=== PATIENT | male | born 1980 | race Two or more races ===

== ENCOUNTER → 2018-06-10 | Outpatient (CLI) | payer OTHER ==
[~2018-06-10] MED LIST: GEMF600T PO; OMEP-110 PO; OXYC1TAB7 PO; SIMV10TA3 PO; [UNRECOGNIZED DRUG - OTHER]
[2018-06-10 07:38] LABS: ALANINE AMINOTRANSFERASE 34 U/L (12-78); ALBUMIN 3.5 g/dL (3.4-5.0); ANION GAP 7 mmol/L (5-15); CALCIUM 8.6 mg/dL (8.5-10.1); CHLORIDE 109 mmol/L (98-107); CHOLESTEROL, TOTAL 176 mg/dL (140-239); CREATININE 0.77 mg/dL (0.7-1.3)
[2018-06-10 07:40] LABS: ALKALINE PHOSPHATASE 51 U/L (45-117); BILIRUBIN,TOTAL 0.2 mg/dL (0.2-1.0); CHOL/HDL RATIO 7.3; HDL CHOL % 14 % (26-37); HDL CHOLESTEROL (DIRECT) 24 mg/dL (40-60); LDL CHOLESTEROL,CALCULATED 95 mg/dL (54-169); TOTAL PROTEIN 7.3 g/dL (6.4-8.2); TRIGLYCERIDES 286 mg/dL (50-200); VLDL CHOLESTEROL 57 mg/dL (0-25)
== END | disposition home or self-care (01) ==
LOC: LAB 07:04
PROVIDERS: ATTEND Family Medicine
DX: I10 Essential (primary) hypertension (principal); E78.5 Hyperlipidemia, unspecified; E55.9 Vitamin D deficiency, unspecified; K21.9 Gastro-esophageal reflux disease without esophagitis; F17.210 Nicotine dependence, cigarettes, uncomplicated; Z79.899 Other long term (current) drug therapy
CPT/HCPCS: 36415; 80053; 80061; 82043; 82306

== ENCOUNTER 2018-08-26 08:19 | Emergency (ER) | payer OTHER ==
[~2018-08-26] VITALS: Ht 162.6 cm; Wt 86.8 kg
[2018-08-26 08:21] VITALS: BP 159/89
== END 2018-08-26 09:13 | disposition home or self-care (01) ==
LOC: ED 09:07
DX: H04.321 Acute dacryocystitis of right lacrimal passage (principal); K21.9 Gastro-esophageal reflux disease without esophagitis; F41.1 Generalized anxiety disorder; I10 Essential (primary) hypertension; Z90.49 Acquired absence of other specified parts of digestive tract
CPT/HCPCS: 99283

== ENCOUNTER 2018-09-03 14:53 | Emergency (ER) | payer OTHER ==
[~2018-09-03] VITALS: Ht 162.6 cm; Wt 88.8 kg
[2018-09-03] MEDS ORDERED: LIDOCAINE 1%, 10ML INFIL ONE (15:30)
[2018-09-03] MEDS ORDERED: LIDOCAINE-MPF 1%, 5ML ONE (15:30)
[2018-09-03] MEDS ORDERED: DIPH,PERTUSS(ACELL),TET VAC/PF 0.5 ML IM-VACC ONE ×3 (15:30→16:00)
[2018-09-03] MEDS ORDERED: BACITRACIN ZINC OINT 500U/GM, 0.9 GM ONE (15:50)
[2018-09-03] MEDS ORDERED: LORazepam 1MG TABLET ONE (15:53)
[2018-09-03] MEDS ORDERED: LIDOCAINE-MPF 1%, 5ML INFIL ONE (16:00)
[2018-09-03] MEDS ORDERED: LORazepam 1MG TABLET PO ONE (16:30)
[2018-09-03 16:38] VITALS: BP 136/87
== END 2018-09-03 16:41 | disposition home or self-care (01) ==
LOC: ED 16:13
DX: S61.211A Laceration without foreign body of left index finger without damage to nail, initial encounter (principal); X58.XXXA Exposure to other specified factors, initial encounter; Y93.89 Activity, other specified; Y92.009 Unspecified place in unspecified non-institutional (private) residence as the place of occurrence of the external cause; Y99.8 Other external cause status; I10 Essential (primary) hypertension; K21.9 Gastro-esophageal reflux disease without esophagitis; Z90.49 Acquired absence of other specified parts of digestive tract
CPT/HCPCS: 12042; 90471; 90472; 90715

== ENCOUNTER 2019-06-19 11:21 | Emergency (ER) | payer MEDICAID, OTHER ==
[~2019-06-19] VITALS: Ht 162.6 cm; Wt 88.9 kg
[2019-06-19 13:43] VITALS: BP 125/87
== END 2019-06-19 13:42 | disposition home or self-care (01) ==
LOC: ED 12:58
DX: R00.2 Palpitations (principal); F41.1 Generalized anxiety disorder; K21.9 Gastro-esophageal reflux disease without esophagitis; F17.200 Nicotine dependence, unspecified, uncomplicated; Z90.89 Acquired absence of other organs
CPT/HCPCS: 36415; 80053; 83735; 84484; 85025; 93005; 96374; 99284; J2060

== ENCOUNTER 2020-02-08 14:21 | Emergency (ER) | payer OTHER, MEDICAID ==
[~2020-02-08] VITALS: Ht 167.6 cm; Wt 91.6 kg
[~2020-02-08 14:21] MED LIST changes: +SIMV10TA18 PO; -SIMV10TA3 PO
[2020-02-08 14:26] VITALS: BP 176/104
--- NOTE | 2020-02-08 14:33 | NUR ---
PT AMBULATED TO THE ROOM W/ A STEADY GAIT.
--- NOTE | 2020-02-08 14:49 | NUR ---
THIS IS A 39 YO M W/ C/O INTERMITTENT CP THAT STARTED LAST NIGHT. PT STATES THAT HE GETS ONE SHARP "PULSING" FEELING AND THEN IT GOES AWAY. PT REPORTS SOB THAT STARTED TODAY. DENIES COUGH. PT IS HYPERTENSIVE AND TACHYCARDIC, OTHER VS WDL. PT HAS HX OF HDL, HTN AND TACHYCARDIA. PT IS CONNECTED TO ALL MONITORING. LAB IN ROOM.
[2020-02-08 15:09] LABS: BASOPHILS # (AUTO) 0.04 x10^3/uL (0-0.1); BASOPHILS % (AUTO) 1 % (0-1); EOSINOPHILS # (AUTO) 0.12 x10^3/uL (0-0.4); EOSINOPHILS % (AUTO) 1 % (1-7); LYMPHOCYTES # (AUTO) 2.12 x10^3/uL (1-3.4); LYMPHOCYTES % (AUTO) 24 % (22-44); MD NO; MEAN CORPUSCULAR HEMOGLOBIN 29.5 pg (27.5-34.5); MEAN CORPUSCULAR HGB CONC 33.7 g/dL (33.2-36.2); MEAN CORPUSCULAR VOLUME 87.6 fL (81-97); MEAN PLATELET VOLUME 8.7 fL (7.4-10.4); MONOCYTES # (AUTO) 0.86 x10^3/uL (0.2-0.8); MONOCYTES % (AUTO) 10 % (2-9); NEUTROPHILS # (AUTO) 5.62 x10^3/uL (1.8-6.8); NEUTROPHILS % (AUTO) 64 % (42-75); PLATELET COUNT 283 x10^3/uL (130-400); RED BLOOD COUNT 5.27 x10^6/uL (4.38-5.82); RED CELL DISTRIBUTION WIDTH 13.2 % (9.4-14.8)
[2020-02-08 15:13] LABS: ALANINE AMINOTRANSFERASE 35 U/L (12-78); ALBUMIN 3.5 g/dL (3.4-5.0); ANION GAP 6 mmol/L (5-15); CALCIUM 9.1 mg/dL (8.5-10.1); CHLORIDE 106 mmol/L (98-107); CREATININE 0.84 mg/dL (0.7-1.3)
[2020-02-08 15:17] LABS: ALKALINE PHOSPHATASE 64 U/L (45-117); BILIRUBIN,TOTAL 0.4 mg/dL (0.2-1.0); TOTAL PROTEIN 7.7 g/dL (6.4-8.2); TROPONIN I < 0.015 ng/mL (0.000-0.045)
--- NOTE | 2020-02-08 15:39 | NUR ---
ALL TESTS RESULTED. PT IS UP FOR RECHECK AT THIS TIME.
== END 2020-02-08 16:37 | disposition home or self-care (01) ==
LOC: ED 14:58
DX: R07.89 Other chest pain (principal); I44.4 Left anterior fascicular block; R00.0 Tachycardia, unspecified; I10 Essential (primary) hypertension; Z87.891 Personal history of nicotine dependence
CPT/HCPCS: 36415; 71045; 80053; 84484; 85025; 93005; 99285